=== PATIENT | male | born 1975 | race Caucasian/White ===

== ENCOUNTER 2018-06-13 05:34 | Emergency (ER) | payer MEDICAID ==
[2018-06-13] MEDS: GUAIFENESIN/DM 5ML CUP PO (06:59)
== END 2018-06-13 07:54 | disposition home or self-care (01) ==
LOC: FTE 05:34
DX: J06.9 Acute upper respiratory infection, unspecified (principal); R03.0 Elevated blood-pressure reading, without diagnosis of hypertension
CPT/HCPCS: 71045; 99283-25

== ENCOUNTER 2018-08-26 01:48 | Emergency (ER) | payer MEDICAID ==
[2018-08-26] MEDS: FAMOTIDINE 20 MG INJ IV (02:29)
[2018-08-26] MEDS: LIDOCAINE/MYLANTA 40 ML BTL PO (02:29)
[2018-08-26 02:36] LABS: ADD MAN DIFF? NO; URINE BLOOD (Dip) POC 2+ (NEGATIVE); URINE GLUCOSE (Dip) POC Negative (NEGATIVE); URINE KETONES (Dip) POC Negative (NEGATIVE); URINE LEUKOCYTE EST (Dip) POC Negative (NEGATIVE); URINE NITRITE (Dip) POC Negative (NEGATIVE); URINE TOTAL PROTEIN POC Negative (NEGATIVE)
[2018-08-26 02:38] LABS: ABNORMAL IP MESSAGE 1; BASOPHILS % 0.7 % (0.0-2.0); EOSINOPHILS # 0.2 10^3/ul (0.0-0.5); HEMATOCRIT 33.7 % (42.0-52.0); HEMOGLOBIN 10.5 g/dl (14.0-18.0); LYMPHOCYTES # 1.1 10^3/ul (0.8-2.9); LYMPHOCYTES % 25.2 % (15.0-51.0); MEAN CORPUSCULAR HEMOGLOBIN 26.3 pg (29.0-33.0); MEAN CORPUSCULAR HGB CONC 31.2 g/dl (32.0-37.0); MEAN CORPUSCULAR VOLUME 84.3 fl (82.0-101.0); MONOCYTE # 0.4 10^3/ul (0.3-0.9); MONOCYTES % 10.3 % (0.0-11.0); NEUTROPHIL # 2.4 10^3/ul (1.6-7.5); NEUTROPHILS % 58.6 % (39.0-77.0); PLATELET COUNT 93 10^3/UL (140-415); POSITIVE DIFF @See below; RED CELL DISTRIBUTION WIDTH 16.6 % (11.5-14.5)
[2018-08-26 02:38] LABS: WHITE BLOOD COUNT 4.2 10^3/ul (4.8-10.8)
[2018-08-26 02:55] LABS: ALANINE AMINOTRANSFERASE 27 IU/L (13-69); ALBUMIN 3.4 g/dl (3.3-4.9); ALBUMIN/GLOBULIN RATIO 0.72; ALKALINE PHOSPHATASE 211 IU/L (42-121); ANION GAP 7 (5-13); ASPARTATE AMINO TRANSFERASE 58 IU/L (15-46); BLOOD UREA NITROGEN 6 mg/dl (7-20); CALCIUM 8.3 mg/dl (8.4-10.2); CARBON DIOXIDE 25 mmol/L (21-31); CHLORIDE 109 mmol/L (97-110); CREATININE 0.62 mg/dl (0.61-1.24); Estimated GFR > 60 mL/min (>60); GLUCOSE 131 mg/dl (70-220); LIPASE 190 U/L (23-300); POTASSIUM 3.4 mmol/L (3.5-5.1); SODIUM 141 mmol/L (135-144); TOTAL PROTEIN 8.1 g/dl (6.1-8.1)
[2018-08-26 02:56] LABS: ETHANOL < 10.0 mg/dl (0-0)
[2018-08-26] MEDS: POTASSIUM CHLORIDE (SR) 20 MEQ TAB PO (03:18)
== END 2018-08-26 03:24 | disposition home or self-care (01) ==
LOC: E/R 01:48
DX: E87.6 Hypokalemia (principal); D61.818 Other pancytopenia; R31.9 Hematuria, unspecified; R10.9 Unspecified abdominal pain
CPT/HCPCS: 36415; 80053; 80307; 81003; 83690; 85025; 96374; 99284-25

== ENCOUNTER 2018-11-16 02:04 | Emergency (ER) | payer MEDICAID ==
[2018-11-16] MEDS: FAMOTIDINE 20 MG INJ IV (03:04)
[2018-11-16] MEDS: LIDOCAINE/MYLANTA 40 ML BTL PO (03:04)
[2018-11-16] MEDS: BELLADONNA/PHENOBARBITAL TAB PO (03:05)
[2018-11-16] MEDS: ONDANSETRON 4 MG INJ IV (03:05)
== END 2018-11-16 04:30 | disposition home or self-care (01) ==
LOC: E/R 02:04
DX: K27.9 Peptic ulcer, site unspecified, unspecified as acute or chronic, without hemorrhage or perforation (principal); K76.9 Liver disease, unspecified; R74.0 Nonspecific elevation of levels of transaminase and lactic acid dehydrogenase [LDH]; D64.9 Anemia, unspecified; D69.6 Thrombocytopenia, unspecified; R40.2142 Coma scale, eyes open, spontaneous, at arrival to emergency department; R40.2252 Coma scale, best verbal response, oriented, at arrival to emergency department; R40.2362 Coma scale, best motor response, obeys commands, at arrival to emergency department; E80.7 Disorder of bilirubin metabolism, unspecified
CPT/HCPCS: 36415; 71045; 80053; 83690; 85025; 96374; 96375; 99284-25